=== PATIENT | female | born 1955 | race Caucasian/White ===

== ENCOUNTER 2025-02-04 04:29 | Inpatient (IN) ==
[2025-02-04] MEDS ORDERED: IOPAMIDOL 100 ML BOTTLE IV ONE (04:30)
[2025-02-04] MEDS: methylPREDNISolone SOD SUCC 125 MG/2 ML VIAL IV ONE (04:59)
[2025-02-04] MEDS: ACETAMINOPHEN 1,000 MG/100 ML BAG IV ONE (04:59)
[2025-02-04] MEDS: 0.9 % SODIUM CHLORIDE 1,000 ML IV SCH (04:59)
[2025-02-04 05:29] LABS: Basophils # (Auto) 0.01 K/mcL (0.00-0.30); Basophils % (Auto) 0.1 % (0.0-2.0); Eosinophils # (Auto) 0 K/mcL (0.00-0.70); Eosinophils % (Auto) 0 % (0.0-7.0); Hematocrit 35.6 % (34.1-44.9); Hemoglobin 10.9 g/dL (11.2-15.7); Lymphocytes % (Auto) 8.6 % (15.5-49.0); Mean Cell Volume 85.8 fL (80.0-100.0); Mean Corpuscular HGB Conc 30.6 g/dL (31.0-36.0); Mean Platelet Volume 8.9 fL (8.8-12.5); Monocytes # (Auto) 1.64 K/mcL (0.10-0.90); Monocytes % (Auto) 8.3 % (1.0-12.0); Neutrophils % (Auto) 78.2 % (38.0-78.0); Platelet Count 424 K/mcL (140-440); RBC 4.15 M/mcL (3.59-5.38); Red Cell Distribution Width 13.7 % (11.5-14.5); WBC 19.9 K/mcL (4.5-11.0)
[2025-02-04 05:48] LABS: ALT/SGPT 82 U/L (<40); AST/SGOT 235 U/L (<32); Albumin 3.5 gm/dL (3.2-5.2); Albumin/Globulin Ratio 1.1 (1.0-2.3); Alkaline Phosphatase 122 U/L (39-117); Bilirubin,Total 0.3 mg/dL (0.1-1.0); Blood Urea Nitrogen 25 mg/dL (8-23); Calcium 9.1 mg/dL (8.6-10.4); Carbon Dioxide 26 mmol/L (22-30); Chloride 95 mmol/L (96-108); Globulin 3.1 gm/dL (2.2-3.7); Glomerular Filtration Rate 35; Glucose 81 mg/dL (70-105); Sodium 135 mmol/L (133-145)
[2025-02-04] MEDS: cefTRIAXone 2 GM in DEXTROSE 5% IN WATER 50 ML IV ONE (05:51)
[2025-02-04 05:55] LABS: Partial Thromboplastin Time 28.3 sec (20.0-37.0); Prothrombin Time 13.5 sec (11.9-14.5)
[2025-02-04 06:25] LABS: Appearance,Urine Clear (Clear); Bilirubin,Urine Negative (Negative); Color,Urine Yellow; Glucose,Urine (UA) Negative (Negative); Ketones,Urine Trace mg/dL (Negative); Leukocyte Esterase,Urine Negative /uL (Negative); Nitrate,Urine Negative (Negative); PH,Urine 5.5 (5.0-9.0); Protein,Urine >=300 mg/dL (Negative); Specific Gravity,Urine >= 1.030 (1.000-1.035); Urine Blood Moderate ery/mcL (Negative); Urine Granular Cast 1 /lph (0-0); Urine Hyaline Cast 25 /lph (0-2); Urine RBC 4 /hpf (0-3); Urine Squamous Epithelial Cell 4 /hpf (0-4); Urine WBC 0 /hpf (0-4); Urobilinogen,Urine Normal
[2025-02-04] MEDS: VANCOMYCIN 1,000 MG in 0.9 % SODIUM CHLORIDE 250 ML IV ONE (06:42)
[2025-02-04] MEDS: KETOROLAC 30 MG/ML VIAL IV ONE (06:53)
[2025-02-04 07:06] LABS: Creatine Kinase 7930 U/L (24-170)
[2025-02-04] MEDS: 0.9 % SODIUM CHLORIDE 2,000 ML IV ONE (07:58)
[2025-02-04] MEDS: LORazepam 2 MG/ML VIAL IV ONE ×2 (08:36→08:51)
[2025-02-04] MEDS ORDERED: ONDANSETRON 4 MG/2 ML VIAL IV PRN (10:10)
[2025-02-04] MEDS ORDERED: SENNOSIDES 1 TABLET PO PRN (10:10)
[2025-02-04] MEDS ORDERED: METOCLOPRAMIDE 10 MG/2 ML VIAL IV PRN (10:10)
[2025-02-04] MEDS ORDERED: POTASSIUM CHLORIDE 20 MEQ TABLET PO PRN (10:10)
[2025-02-04] MEDS ORDERED: POLYETHYLENE GLYCOL 3350 17 GM PACKET PO PRN (10:10)
[2025-02-04] MEDS ORDERED: MAGNESIUM SULFATE 2 GM/50 ML BAG IV PRN (10:10)
[2025-02-04] MEDS ORDERED: POTASSIUM CHLORIDE 40 MEQ in DEXTROSE 5% IN WATER 500 ML IV PRN (10:10)
[2025-02-04] MEDS: ACETAMINOPHEN 325 MG TABLET PO PRN (11:00)
[2025-02-04] MEDS: AZITHROMYCIN 500 MG in 0.9 % SODIUM CHLORIDE 250 ML IV SCH (11:01)
[2025-02-04] MEDS: IPRATROPIUM/ALBUTEROL 3 ML AMPUL.NEB NEB PRN (11:20)
[2025-02-04] MEDS: 0.9 % SODIUM CHLORIDE 1,000 ML IV ONE (12:00)
[2025-02-04] MEDS: HYDROcodone/APAP 10/325MG TABLET PO PRN (12:45)
[2025-02-04] MEDS: ENOXAPARIN 40 MG/0.4 ML SYRINGE SQ SCH (20:19)
[2025-02-04] MEDS: DOCUSATE SODIUM 100 MG CAPSULE PO SCH (20:19)
[2025-02-04] MEDS: MUPIROCIN OINT 2% 22GM NARES SCH (20:19)
[2025-02-05 05:59] LABS: Basophils # (Auto) 0.01 K/mcL (0.00-0.30); Basophils % (Auto) 0.1 % (0.0-2.0); Eosinophils # (Auto) 0.02 K/mcL (0.00-0.70); Eosinophils % (Auto) 0.1 % (0.0-7.0); Hemoglobin 10.5 g/dL (11.2-15.7); Lymphocytes # (Auto) 1.37 K/mcL (1.50-4.80); Mean Cell Volume 82.3 fL (80.0-100.0); Mean Corpuscular HGB Conc 31.8 g/dL (31.0-36.0); Mean Platelet Volume 8.7 fL (8.8-12.5); Monocytes # (Auto) 1.54 K/mcL (0.10-0.90); Platelet Count 391 K/mcL (140-440); RBC 4.01 M/mcL (3.59-5.38); Red Cell Distribution Width 15.2 % (11.5-14.5)
[2025-02-05] MEDS ORDERED: VANCOMYCIN PER PHARMACY IV SCH (06:29)
[2025-02-05 06:38] LABS: ALT/SGPT 91 U/L (<40); AST/SGOT 238 U/L (<32); Albumin 3.2 gm/dL (3.2-5.2); Albumin/Globulin Ratio 1.2 (1.0-2.3); Alkaline Phosphatase 89 U/L (39-117); Bilirubin,Direct < 0.2 mg/dL (0-0.3); Bilirubin,Total 0.2 mg/dL (0.1-1.0); Blood Urea Nitrogen 16 mg/dL (8-23); Calcium 8.7 mg/dL (8.6-10.4); Carbon Dioxide 28 mmol/L (22-30); Chloride 101 mmol/L (96-108); Globulin 2.7 gm/dL (2.2-3.7); Glomerular Filtration Rate 89; Glucose 91 mg/dL (70-105); Lactate Dehydrogenase 590 U/L (135-225); Phosphorous 2.1 mg/dL (2.5-4.5); Potassium 3.7 mmol/L (3.3-5.1); Sodium 139 mmol/L (133-145); Triglycerides 159 mg/dL (<150); Uric Acid 6.6 mg/dL (2.5-8.0)
[2025-02-05] MEDS: cefTRIAXone 2 GM in DEXTROSE 5% IN WATER 50 ML IV SCH (08:35)
[2025-02-05] MEDS: VANCOMYCIN 1,000 MG in 0.9 % SODIUM CHLORIDE 250 ML IV SCH (09:20)
[2025-02-06] MEDS: 0.9 % SODIUM CHLORIDE 10 ML SYRINGE IV SCH (04:49)
[2025-02-06 09:12] LABS: Basophils # (Auto) 0.01 K/mcL (0.00-0.30); Basophils % (Auto) 0.1 % (0.0-2.0); Eosinophils # (Auto) 0.03 K/mcL (0.00-0.70); Eosinophils % (Auto) 0.2 % (0.0-7.0); Hematocrit 33.8 % (34.1-44.9); Hemoglobin 10.8 g/dL (11.2-15.7); Lymphocytes # (Auto) 1.78 K/mcL (1.50-4.80); Lymphocytes % (Auto) 13.6 % (15.5-49.0); Mean Cell Volume 81.3 fL (80.0-100.0); Mean Platelet Volume 8.5 fL (8.8-12.5); Monocytes # (Auto) 1.17 K/mcL (0.10-0.90); Monocytes % (Auto) 8.9 % (1.0-12.0); Neutrophils % (Auto) 75.4 % (38.0-78.0); Platelet Count 390 K/mcL (140-440); RBC 4.16 M/mcL (3.59-5.38); Red Cell Distribution Width 15.3 % (11.5-14.5); WBC 13.1 K/mcL (4.5-11.0)
[2025-02-06 10:00] LABS: ALT/SGPT 83 U/L (<40); AST/SGOT 134 U/L (<32); Albumin 3.3 gm/dL (3.2-5.2); Albumin/Globulin Ratio 1.2 (1.0-2.3); Alkaline Phosphatase 82 U/L (39-117); Bilirubin,Direct < 0.2 mg/dL (0-0.3); Bilirubin,Total 0.3 mg/dL (0.1-1.0); Blood Urea Nitrogen 10 mg/dL (8-23); Calcium 8.6 mg/dL (8.6-10.4); Carbon Dioxide 26 mmol/L (22-30); Chloride 102 mmol/L (96-108); Creatine Kinase 1161 U/L (24-170); Globulin 2.7 gm/dL (2.2-3.7); Glomerular Filtration Rate 94; Glucose 87 mg/dL (70-105); Lactate Dehydrogenase 537 U/L (135-225); Phosphorous 1.6 mg/dL (2.5-4.5); Potassium 3.2 mmol/L (3.3-5.1); Sodium 140 mmol/L (133-145); Triglycerides 176 mg/dL (<150); Uric Acid 5.3 mg/dL (2.5-8.0)
[2025-02-06] MEDS: VANCOMYCIN 1,500 MG in 0.9 % SODIUM CHLORIDE 500 ML IV SCH (11:15)
[2025-02-06] MEDS: LEVOFLOXACIN 750 MG/150 ML BAG IV ONE (11:34)
[2025-02-06] MEDS: LEVOFLOXACIN 750 MG/150 ML BAG IV SCH (11:37)
[2025-02-06] MEDS: POTASSIUM CHLORIDE 20 MEQ TABLET PO PRN (13:18)
[2025-02-06] MEDS ORDERED: ALBUTEROL SULFATE 60 PUFF INHALER INH PRN (15:52)
[2025-02-06] MEDS: OMEPRAZOLE 20 MG CAPSULE PO SCH (16:23)
[2025-02-06] MEDS: NEUTRA PHOS 1 PACKET PO SCH (16:23)
[2025-02-06] MEDS: amLODIPine 10 MG TABLET PO SCH (16:23)
[2025-02-06] MEDS: FORMOTEROL INH SCH (21:47)
[2025-02-06] MEDS: GLYCOPYRROLATE INH SCH (21:47)
[2025-02-06] MEDS: BUDESONIDE INH SCH (21:47)
[2025-02-07 06:04] LABS: Basophils # (Auto) 0.02 K/mcL (0.00-0.30); Basophils % (Auto) 0.2 % (0.0-2.0); Eosinophils # (Auto) 0.11 K/mcL (0.00-0.70); Eosinophils % (Auto) 0.9 % (0.0-7.0); Hematocrit 34.1 % (34.1-44.9); Hemoglobin 10.9 g/dL (11.2-15.7); Lymphocytes # (Auto) 2.34 K/mcL (1.50-4.80); Lymphocytes % (Auto) 18.2 % (15.5-49.0); Mean Cell Volume 81.6 fL (80.0-100.0); Mean Platelet Volume 8.6 fL (8.8-12.5); Monocytes # (Auto) 1.19 K/mcL (0.10-0.90); Monocytes % (Auto) 9.2 % (1.0-12.0); Neutrophils % (Auto) 69.4 % (38.0-78.0); Platelet Count 391 K/mcL (140-440); RBC 4.18 M/mcL (3.59-5.38); Red Cell Distribution Width 15.2 % (11.5-14.5); WBC 12.9 K/mcL (4.5-11.0)
[2025-02-07 06:16] LABS: ALT/SGPT 63 U/L (<40); AST/SGOT 66 U/L (<32); Albumin 3.2 gm/dL (3.2-5.2); Albumin/Globulin Ratio 1.3 (1.0-2.3); Alkaline Phosphatase 72 U/L (39-117); Bilirubin,Direct < 0.2 mg/dL (0-0.3); Bilirubin,Total 0.3 mg/dL (0.1-1.0); Blood Urea Nitrogen 12 mg/dL (8-23); Calcium 8.6 mg/dL (8.6-10.4); Carbon Dioxide 26 mmol/L (22-30); Chloride 105 mmol/L (96-108); Globulin 2.4 gm/dL (2.2-3.7); Glomerular Filtration Rate 99; Glucose 101 mg/dL (70-105); Lactate Dehydrogenase 422 U/L (135-225); Phosphorous 2.7 mg/dL (2.5-4.5); Potassium 3.5 mmol/L (3.3-5.1); Sodium 140 mmol/L (133-145); Triglycerides 159 mg/dL (<150); Uric Acid 4.1 mg/dL (2.5-8.0)
[2025-02-07] MEDS: LEVOTHYROXINE 25 MCG TABLET PO SCH (07:14)
[2025-02-07] MEDS: CITALOPRAM 20 MG TABLET PO SCH (08:38)
[2025-02-07] MEDS: LOSARTAN 50 MG TABLET PO SCH (08:38)
[2025-02-07] MEDS: LEVOFLOXACIN 750 MG/150 ML BAG IV SCH (09:05)
[2025-02-07] MEDS ORDERED: LABETALOL HCL 20 MG/4 ML VIAL IV PRN (23:18)
[2025-02-08 05:32] LABS: Basophils # (Auto) 0.03 K/mcL (0.00-0.30); Basophils % (Auto) 0.2 % (0.0-2.0); Eosinophils # (Auto) 0.25 K/mcL (0.00-0.70); Eosinophils % (Auto) 1.3 % (0.0-7.0); Hematocrit 40.7 % (34.1-44.9); Hemoglobin 12.9 g/dL (11.2-15.7); Lymphocytes # (Auto) 3.97 K/mcL (1.50-4.80); Lymphocytes % (Auto) 21.4 % (15.5-49.0); Mean Cell Volume 81.4 fL (80.0-100.0); Mean Corpuscular HGB Conc 31.7 g/dL (31.0-36.0); Mean Platelet Volume 8.4 fL (8.8-12.5); Monocytes # (Auto) 1.48 K/mcL (0.10-0.90); Platelet Count 531 K/mcL (140-440); Red Cell Distribution Width 15.4 % (11.5-14.5); WBC 18.6 K/mcL (4.5-11.0)
[2025-02-08 05:52] LABS: ALT/SGPT 60 U/L (<40); AST/SGOT 45 U/L (<32); Albumin 3.8 gm/dL (3.2-5.2); Albumin/Globulin Ratio 1.2 (1.0-2.3); Alkaline Phosphatase 77 U/L (39-117); Bilirubin,Direct < 0.2 mg/dL (0-0.3); Bilirubin,Total 0.4 mg/dL (0.1-1.0); Blood Urea Nitrogen 14 mg/dL (8-23); Calcium 9.4 mg/dL (8.6-10.4); Carbon Dioxide 23 mmol/L (22-30); Chloride 102 mmol/L (96-108); Globulin 3.1 gm/dL (2.2-3.7); Glomerular Filtration Rate 94; Glucose 112 mg/dL (70-105); Lactate Dehydrogenase 445 U/L (135-225); Phosphorous 3.2 mg/dL (2.5-4.5); Potassium 3.6 mmol/L (3.3-5.1); Sodium 138 mmol/L (133-145); Triglycerides 240 mg/dL (<150); Uric Acid 3.5 mg/dL (2.5-8.0)
[2025-02-08] MEDS: LEVOFLOXACIN 750 MG TABLET PO SCH (09:55)
[2025-02-09 05:07] VITALS: O2SAT 96
[2025-02-09 06:14] LABS: Basophils # (Auto) 0.03 K/mcL (0.00-0.30); Basophils % (Auto) 0.2 % (0.0-2.0); Eosinophils # (Auto) 0.19 K/mcL (0.00-0.70); Eosinophils % (Auto) 1.5 % (0.0-7.0); Hematocrit 35.9 % (34.1-44.9); Hemoglobin 11.2 g/dL (11.2-15.7); Lymphocytes # (Auto) 2.39 K/mcL (1.50-4.80); Lymphocytes % (Auto) 18.7 % (15.5-49.0); Mean Cell Volume 82.5 fL (80.0-100.0); Mean Corpuscular HGB Conc 31.2 g/dL (31.0-36.0); Mean Platelet Volume 8.5 fL (8.8-12.5); Monocytes # (Auto) 1.22 K/mcL (0.10-0.90); Monocytes % (Auto) 9.5 % (1.0-12.0); Neutrophils % (Auto) 66.2 % (38.0-78.0); Platelet Count 398 K/mcL (140-440); RBC 4.35 M/mcL (3.59-5.38); Red Cell Distribution Width 15.7 % (11.5-14.5); WBC 12.8 K/mcL (4.5-11.0)
[2025-02-09 06:36] LABS: ALT/SGPT 47 U/L (<40); AST/SGOT 36 U/L (<32); Albumin 3.5 gm/dL (3.2-5.2); Albumin/Globulin Ratio 1.5 (1.0-2.3); Alkaline Phosphatase 62 U/L (39-117); Bilirubin,Direct < 0.2 mg/dL (0-0.3); Bilirubin,Total 0.3 mg/dL (0.1-1.0); Blood Urea Nitrogen 16 mg/dL (8-23); Carbon Dioxide 27 mmol/L (22-30); Chloride 103 mmol/L (96-108); Globulin 2.4 gm/dL (2.2-3.7); Glomerular Filtration Rate 94; Glucose 100 mg/dL (70-105); Lactate Dehydrogenase 324 U/L (135-225); Phosphorous 3.2 mg/dL (2.5-4.5); Potassium 3.4 mmol/L (3.3-5.1); Sodium 139 mmol/L (133-145); Triglycerides 170 mg/dL (<150); Uric Acid 3.9 mg/dL (2.5-8.0)
[2025-02-09 13:59] VITALS: TEMP 98.8
== END 2025-02-09 14:30 | disposition home health service (06) | DRG 871 ==
LOC: ED 04:29 → ICU 10:03 → MEDSUR 02-05 11:06
PROVIDERS: ADMIT Internal Medicine; ATTEND Internal Medicine